=== PATIENT | female | born 1980 | race African-American/Black ===

== ENCOUNTER 2017-10-08 20:42 | Emergency (ER) | payer OTHER ==
[~2017-10-08] VITALS: Ht 149.9 cm; Wt 50.0 kg
[~2017-10-08 20:42] MED LIST: DULO20 PO; SULF-154 PO
[2017-10-08 21:18] VITALS: BP 131/86; PULSE 72; RESP 20; TEMP 99.1; O2SAT 100
--- NOTE | 2017-10-08 21:29 | PD ---
HPI Chief Complaint: Oral / Dental Pain or Problem Time Seen by Provider: 21:26 Travel History International Travel<30 days: No Contact w/Intl Traveler<30days: No Traveled to known affect area: No History of Present Illness HPI 39-year-old black female presents emergency department with complaints of dental pain. She states that in the last 4 days she has had increasing pain to the right upper maxilla. No alleviating activity. No exacerbating activity. Denies fever or chills. No facial swelling. History Past Medical Histgory Medical History: Denies Significant Hx Tetanus Vaccination: < 5 Years LMP: 09/13/17 Past Surgical History Narrative Surgical Oral surgery Social History Alcohol Use: Yes Tobacco Use: Yes Allergies-Medications (Allergen,Severity, Reaction): Coded Allergies: No Known Allergies (Verified Adverse Reaction, Unknown, 10/08/17) Reported Meds & Prescriptions Reported Meds & Active Scripts Active Septra Ds (Trimethoprim/Sulfamethoxazole) Tab 1 Tab PO BID 10 Days Reported Cymbalta (Duloxetine HCl) 20 Mg Cap 0 PO BID UNKNOWN DOSE Review of Systems General / Constitutional: No: Fever Eyes: No: Visual changes HENT: Positive: Dental Difficulties, Earache, No: Headaches, Sore Throat, Ear Discharge Cardiovascular: No: Chest Pain or Discomfort Respiratory: No: Shortness of Breath Gastrointestinal: No: Abdominal Pain Genitourinary: No: Dysuria Musculoskeletal: No: Pain Skin: No Rash Neurologic: No: Weakness Psychiatric: No: Depression Endocrine: No: Polydipsia Hematologic/Lymphatic: No: Easy Bruising Physical Exam Narrative GENERAL: Well-developed, well-nourished in no acute distress. Nontoxic appearing. HEAD: Normocephalic, atraumatic. EYES: Pupils equal round and reactive. Extraocular motions intact. No scleral icterus. No injection or drainage. ENT: TMs clear without erythema. The external auditory canals clear. Nose: clear . Posterior pharynx is pink and moist. No tonsillar edema or exudate. Uvula midline. Airway patent. Patient has a large dental caries and her right upper maxilla and the location of her premolar. She has had multiple dental extractions. There is no sign of the abscess. No facial swelling NECK: Trachea midline.Supple, nontender, moves head freely. No central bony tenderness or spasm. CARDIOVASCULAR: Regular rate and rhythm without murmurs, gallops, or rubs. RESPIRATORY: Clear to auscultation. Breath sounds equal bilaterally. No wheezes , rales, or rhonchi. GASTROINTESTINAL: Abdomen soft, non-tender, nondistended. No hepato-splenomegaly , or palpable masses. No guarding. EXTREMITIES: No clubbing, cyanosis, or edema. No joint tenderness, effusion, or edema noted. BACK: Nontender without deformity or crepitance. No flank tenderness. Data Data Last Documented VS Vital Signs Date Time Temp Pulse Resp B/P (MAP) Pulse Ox O2 Delivery O2 Flow Rate FiO2 10/08/17 21:18 99.1 72 20 131/86 (101) 100 Room Air MDM Medical Screen Exam Complete: Yes Emergency Medical Condition: No Differential Diagnosis MDM: Moderate Differential diagnoses: Dental abscess, dental caries, osteitis, cellulitis Narrative Course A medical screening exam was performed: At the time of evaluation the presenting medical condition was determined not to be of an emergent nature. The patient was given the option of receiving additional care, but declined. Patient was given options for additional community resources from which to obtain care. The Patient Has Been advised to seek medical attention for their presenting complaint. The patient has been advised to return to the ER at any time if an emergent condition develops. Primary Impression: Encounter for medical screening examination Condition: Roque Izaguirre Oct 08, 2017 21:29
== END 2017-10-08 21:50 | disposition left against medical advice (07) ==
LOC: NEPD 20:42
DX: K08.89 Other specified disorders of teeth and supporting structures (principal); Z72.0 Tobacco use
CPT/HCPCS: 99281

== ENCOUNTER 2017-12-07 19:00 | Emergency (ER) | payer SELFPAY ==
[2017-12-07 19:13] VITALS: BP 145/92; PULSE 80; RESP 17; TEMP 98.4; O2SAT 96
[2017-12-07] MEDS ORDERED: LISI-515 PO (19:20)
[2017-12-07] MEDS ORDERED: FLUTI110I INH (19:20)
[2017-12-07] MEDS ORDERED: KETOROLAC TROMETHAMINE 60 MG/2 ML (IM) VIAL IM ONE (19:30)
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
== END 2017-12-07 20:25 | disposition left against medical advice (07) ==
LOC: NEPK 19:00
DX: R51 Headache (principal)
CPT/HCPCS: 96372; 99281; J1885